=== PATIENT | female | born 1995 | race Asian ===

== ENCOUNTER 2018-06-06 17:56 | Emergency (ER) | payer BC ==
[2018-06-06] MEDS ORDERED: Rabies Vaccine Human 2.5 UNITS VIAL IM ONE (19:30)
== END 2018-06-06 20:19 | disposition home or self-care (01) ==
LOC: ERS 17:56
DX: S81.051A Open bite, right knee, initial encounter (principal); W54.0XXA Bitten by dog, initial encounter
CPT/HCPCS: 90376; 90471; 90675; 96372

== ENCOUNTER 2018-06-09 11:13 | Day surgery (SDC) | payer BC ==
[2018-06-09] MEDS ORDERED: Rabies Vaccine Human 2.5 UNITS VIAL IM ONE (11:30)
== END 2018-06-09 12:25 | disposition home or self-care (01) ==
LOC: ER/OP 11:13
PROVIDERS: ATTEND Emergency Medicine
DX: Z29.14 Encounter for prophylactic rabies immune globulin (principal); S80.211A Abrasion, right knee, initial encounter; Z88.1 Allergy status to other antibiotic agents
CPT/HCPCS: 90471; 90675

== ENCOUNTER → 2018-06-13 | Day surgery (SDC) | payer BC ==
[~2018-06-13] MED LIST: Rabies Vaccine Human 2.5 UNITS VIAL IM ONE
== END ==
LOC: ER/OP 15:51
PROVIDERS: ATTEND Emergency Medicine
DX: Z29.14 Encounter for prophylactic rabies immune globulin (principal); Z88.1 Allergy status to other antibiotic agents
CPT/HCPCS: 90471; 90675

== ENCOUNTER → 2018-06-20 | Day surgery (SDC) | payer BC | LOC: ER/OP 15:18 | PROVIDERS: ATTEND Physician Assistant | DX: Z29.14 Encounter for prophylactic rabies immune globulin (principal); Z88.1 Allergy status to other antibiotic agents | CPT/HCPCS: 90471; 90675 ==